=== PATIENT | female | born 1990 | race Caucasian/White ===

== ENCOUNTER 2018-03-19 07:32 | Inpatient (IN) | payer OTHER ==
[~2018-03-19] VITALS: Ht 170.2 cm; Wt 89.1 kg
[2018-03-19] VITALS (20 sets, daily range): BP systolic 95–122; BP diastolic 53–80
[2018-03-19] MEDS ORDERED: PRENATAL TABLE1 EAC3 PO (08:32)
[2018-03-19] MEDS ORDERED: TUMS500 MG PO (08:33)
[2018-03-19 10:09] LABS: THC CANNABINOIDS PRESUMPTIVE POSITIVE (50 ng/mL)
[2018-03-19 10:10] LABS: AMPHETAMINE NEGATIVE (500 ng/mL); BARBITURATES NEGATIVE (200 ng/mL); BENZODIAZEPINES NEGATIVE (150 ng/mL); BUPRENORPHINE NEGATIVE (10 ng/mL); COCAINE NEGATIVE (150 ng/mL); METHADONE NEGATIVE (200 ng/mL); METHAMPHETAMINE NEGATIVE (500 ng/mL); OPIATES (MORPHINE) NEGATIVE (100 ng/mL); OXYCODONE NEGATIVE (100 ng/mL); PHENCYCLIDINE NEGATIVE (25 ng/mL); PROPOXYPHENE NEGATIVE (300 ng/mL); TRICYCLIC ANTIDEPRESSANTS NEGATIVE (300 ng/mL)
[2018-03-19 10:22] LABS: BASOPHIL (%) 0.5 % (0-1); EOSINOPHIL (%) 0.9 % (0-5); EOSINOPHIL COUNT 0.1 K/uL (0-0.3); HEMATOCRIT 33.9 % (36.0-46.0); HEMOGLOBIN 10.9 G/DL (11.9-15.5); IMMATURE GRANULOCYTE (%) 1.7 % (0.0-0.7); LYMPHOCYTE (%) 19.3 % (15-42); LYMPHOCYTE COUNT 1.6 K/uL (1.0-2.8); MCH 27.7 PG (29.0-34.0); MCHC 32.2 G/DL (30.0-36.0); MONOCYTE (%) 4.1 % (3-12); MONOCYTE COUNT 0.4 K/uL (0-0.8); NEUTROPHIL (%) 73.5 % (45-76); NEUTROPHIL COUNT 6.2 K/uL (1.8-6.4); PLATELET COUNT 225 K/uL (156-360); RBC DIS.WIDTH-CV 13.5 % (11.8-14.6); RBC DIS.WIDTH-SD 42.8 % (39-53); RED BLOOD COUNT 3.94 M/uL (3.80-5.20); WHITE BLOOD COUNT 8.5 K/uL (4.1-10.2)
[2018-03-20] VITALS (9 sets, daily range): BP systolic 90–128; BP diastolic 56–64
[2018-03-21 06:52] LABS: BASOPHIL (%) 0.6 % (0-1); BASOPHIL COUNT 0.1 K/uL (0-0.1); EOSINOPHIL (%) 1.3 % (0-5); EOSINOPHIL COUNT 0.1 K/uL (0-0.3); HEMATOCRIT 29.1 % (36.0-46.0); HEMOGLOBIN 9.5 G/DL (11.9-15.5); IMMATURE GRANULOCYTE (%) 1.2 % (0.0-0.7); LYMPHOCYTE (%) 23.2 % (15-42); LYMPHOCYTE COUNT 1.9 K/uL (1.0-2.8); MCH 28.3 PG (29.0-34.0); MCHC 32.6 G/DL (30.0-36.0); MCV 86.6 FL (83-99); MONOCYTE COUNT 0.6 K/uL (0-0.8); NEUTROPHIL (%) 66.7 % (45-76); NEUTROPHIL COUNT 5.5 K/uL (1.8-6.4); PLATELET COUNT 200 K/uL (156-360); RBC DIS.WIDTH-CV 13.8 % (11.8-14.6); RBC DIS.WIDTH-SD 43.3 % (39-53); RED BLOOD COUNT 3.36 M/uL (3.80-5.20); WHITE BLOOD COUNT 8.3 K/uL (4.1-10.2)
[2018-03-21] MEDS ORDERED: DOCUSATE SODIU100 MG PO (10:30)
[2018-03-21] MEDS ORDERED: IBUPROFEN800 MG PO (10:30)
[2018-03-21] MEDS ORDERED: CHROMAGEN SOFT1 EACH PO (10:31)
== END 2018-03-21 14:28 | disposition home or self-care (01) | DRG 775 ==
LOC: LDRP-OP 07:32 → 2WEST 07:33 → LDRP-OP 16:02 → 2WEST 03-20 02:09 → LDRP-OP 04-20 10:20
PROVIDERS: Advanced Practice Midwife
PROC: 0UQMXZZ Repair Vulva, External Approach (ICD-10-PCS; principal; 2018-03-20)
PROC: 10E0XZZ Delivery of Products of Conception, External Approach (ICD-10-PCS; 2018-03-20)
DX: O71.82 Other specified trauma to perineum and vulva (principal); O69.81X0 Labor and delivery complicated by cord around neck, without compression, not applicable or unspecified; O99.340 Other mental disorders complicating pregnancy, unspecified trimester; F32.9 Major depressive disorder, single episode, unspecified; Z3A.39 39 weeks gestation of pregnancy; Z37.0 Single live birth; O99.214 Obesity complicating childbirth; E66.9 Obesity, unspecified; O99.02 Anemia complicating childbirth; D50.9 Iron deficiency anemia, unspecified; O99.334 Smoking (tobacco) complicating childbirth; F17.200 Nicotine dependence, unspecified, uncomplicated; O99.323 Drug use complicating pregnancy, third trimester; F12.90 Cannabis use, unspecified, uncomplicated
CPT/HCPCS: 84999; 85025; 87641; C1755; G0378; J3010; J7120

== ENCOUNTER 2018-06-01 09:55 | Day surgery (SDC) | payer OTHER ==
[~2018-06-01] VITALS: Ht 170.2 cm; Wt 77.0 kg
[~2018-06-01 09:55] MED LIST: CHROMAGEN SOFT1 EACH PO; DOCUSATE SODIU100 MG PO; IBUPROFEN800 MG PO; PRENATAL TABLE1 EAC3 PO; TUMS500 MG PO
[2018-06-01 10:44] VITALS: BP 109/76
[2018-06-01 11:11] LABS: BASOPHIL (%) 0.9 % (0-1); BASOPHIL COUNT 0.1 K/uL (0-0.1); EOSINOPHIL (%) 3.2 % (0-5); EOSINOPHIL COUNT 0.2 K/uL (0-0.3); HEMOGLOBIN 13.5 G/DL (11.9-15.5); IMMATURE GRANULOCYTE (%) 0.6 % (0.0-0.7); LYMPHOCYTE (%) 32.4 % (15-42); LYMPHOCYTE COUNT 1.7 K/uL (1.0-2.8); MCH 28.6 PG (29.0-34.0); MCHC 33.8 G/DL (30.0-36.0); MCV 84.7 FL (83-99); MONOCYTE (%) 7.1 % (3-12); MONOCYTE COUNT 0.4 K/uL (0-0.8); NEUTROPHIL (%) 55.8 % (45-76); PLATELET COUNT 315 K/uL (156-360); RBC DIS.WIDTH-CV 15.2 % (11.8-14.6); RBC DIS.WIDTH-SD 46.4 % (39-53); RED BLOOD COUNT 4.72 M/uL (3.80-5.20); WHITE BLOOD COUNT 5.4 K/uL (4.1-10.2)
[2018-06-01] MEDS ORDERED: IBUPROFEN800 MG PO (13:03)
[2018-06-01] MEDS ORDERED: ENDOCET 5-3251 EACH PO (13:03)
[2018-06-01 14:30] VITALS: BP 134/72
[2018-06-01 14:56] VITALS: BP 126/74
== END 2018-06-01 15:00 | disposition home or self-care (01) ==
LOC: SDC 09:55
PROVIDERS: Obstetrics & Gynecology
PROC: 0U574ZZ Destruction of Bilateral Fallopian Tubes, Percutaneous Endoscopic Approach (ICD-10-PCS; principal; 2018-06-01)
DX: Z30.2 Encounter for sterilization (principal); F17.210 Nicotine dependence, cigarettes, uncomplicated
CPT/HCPCS: 81025; 85025; 86850; 86900; 86901; 87641; J1100; J1885; J2250; J2405; J2710; J3010; J7643